=== PATIENT | female | born 1950 | race Asian ===

== ENCOUNTER 2018-09-25 20:36 | Emergency (ER) | payer OTHER ==
[~2018-09-25] VITALS: Ht 149.9 cm; Wt 54.5 kg
[~2018-09-25 20:36] MED LIST: AMLO10TA55 PO; ASPI-449 PO; LISI20TA PO
[2018-09-25 21:08] VITALS: BP 155/79
[2018-09-25] MEDS ORDERED: CARV3 PO (21:13)
[2018-09-25] MEDS ORDERED: AMLO-512 PO (21:13)
[2018-09-25] MEDS ORDERED: ATOR20TA86 PO (21:13)
[2018-09-25] MEDS ORDERED: LOSA25TA41 PO (21:13)
[2018-09-25 21:19] LABS: GLUCOSE,POINT OF CARE 152 MG/DL (70-110)
[2018-09-25] MEDS ORDERED: IBUPROFEN 600 MG TABLET PO ONE (22:45)
== END 2018-09-26 00:05 | disposition home or self-care (01) ==
LOC: EMS 20:37
DX: M53.3 Sacrococcygeal disorders, not elsewhere classified (principal); M25.552 Pain in left hip; I10 Essential (primary) hypertension; E78.00 Pure hypercholesterolemia, unspecified; Z90.710 Acquired absence of both cervix and uterus; Z79.82 Long term (current) use of aspirin
CPT/HCPCS: 73503

== ENCOUNTER 2019-03-05 15:34 | Emergency (ER) | payer OTHER ==
[~2019-03-05] VITALS: Ht 144.8 cm; Wt 56.8 kg
[~2019-03-05 15:34] MED LIST changes: -AMLO10TA55 PO; +AMLO10TA7 PO; +ATOR20TA86 PO; +CARV3 PO; -LISI20TA PO; +LOSA25TA41 PO
[2019-03-05] MEDS ORDERED: ACETAMINOPHEN 325 MG TABLET PO ONE (16:00)
[2019-03-05] MEDS ORDERED: SODIUM CHLORIDE 0.9% 1,000 ML IV ONE (16:00)
[2019-03-05] MEDS ORDERED: ONDANSETRON HCL 4 MG/2 ML VIAL IVP ONE (16:00)
[2019-03-05 16:21] LABS: BASOPHILS % (AUTO) 0.2 % (0.0-2.0); EOSINOPHILS % (AUTO) 0 % (1.0-6.0); HEMATOCRIT 36.8 % (36-46); HEMOGLOBIN 12.7 g/dL (12.0-16.0); LYMPHOCYTES # (AUTO) 1.5 K/uL (1.0-4.8); LYMPHOCYTES % (AUTO) 17.3 % (22.0-44.0); MEAN CORPUSCULAR HEMOGLOBIN 31.3 pg (26.0-34.0); MEAN CORPUSCULAR HGB CONC 34.6 G/dL (31.0-37.0); MEAN CORPUSCULAR VOLUME 91 fL (80-100); MONOCYTES # (AUTO) 0.8 K/uL (0.1-1.0); MONOCYTES % (AUTO) 9.2 % (2.0-9.0); NEUTROPHILS # (AUTO) 6.4 K/uL (1.8-7.7); NEUTROPHILS % (AUTO) 73.3 % (40.0-70.0); PLATELET COUNT (AUTO) 174 K/uL (150-450); RED BLOOD CELL COUNT(AUTO) 4.05 MIL/uL (4.00-5.20)
[2019-03-05 16:34] LABS: ANION GAP 10 mmol/L (8-16); CALCIUM, TOTAL 8.6 mg/dL (8.8-10.5); CARBON DIOXIDE 25 mmol/L (22-29); CHLORIDE 91 mmol/L (98-107); CREATININE 0.62 mg/dL (0.60-1.30); GLOMERULAR FILTR. RATE CALC > 60 mL/min (>60); GLUCOSE,RANDOM 141 mg/dL (70-110); POTASSIUM 3.3 mmol/L (3.5-5.1); SODIUM SERUM 126 mmol/L (136-145)
[2019-03-05 16:43] LABS: UREA NITROGEN, BLOOD 6 mg/dL (7-18)
[2019-03-05 17:03] VITALS: BP 137/74
== END 2019-03-05 18:02 | disposition home or self-care (01) ==
LOC: EMS 15:36
DX: J40 Bronchitis, not specified as acute or chronic (principal); R07.89 Other chest pain; E78.00 Pure hypercholesterolemia, unspecified; I10 Essential (primary) hypertension; Z90.710 Acquired absence of both cervix and uterus; Z98.890 Other specified postprocedural states; Z79.899 Other long term (current) drug therapy
CPT/HCPCS: 36415; 71045; 80048; 82962; 84484; 85025; 85379; 93005; 96374; 99285; J2405; J7030